=== PATIENT | female | born 1960 | race Caucasian/White ===

== ENCOUNTER → 2018-01-22 | Outpatient (CLI) | payer OTHER | LOC: BMCIMAGING 09:43 | PROVIDERS: ATTEND Internal Medicine | DX: Z12.31 Encounter for screening mammogram for malignant neoplasm of breast (principal) ==

== ENCOUNTER → 2018-03-05 | Outpatient (CLI) | payer OTHER | LOC: FIMAGING 10:57 | PROVIDERS: ATTEND Specialist | DX: N20.0 Calculus of kidney (principal); D25.9 Leiomyoma of uterus, unspecified ==

== ENCOUNTER → 2018-05-15 | Outpatient (CLI) | payer OTHER | LOC: FIMAGING 10:30 | PROVIDERS: ATTEND Urology | DX: N20.0 Calculus of kidney (principal); R16.0 Hepatomegaly, not elsewhere classified ==

== ENCOUNTER → 2018-10-24 | Outpatient (CLI) | payer OTHER | LOC: FIMAGING 09:06 | PROVIDERS: ATTEND Urology | DX: N20.0 Calculus of kidney (principal) ==

== ENCOUNTER → 2019-03-22 | Outpatient (CLI) | payer OTHER | LOC: FIMAGING 13:29 ==